=== PATIENT | male | born 1960 | race Caucasian/White ===

== ENCOUNTER 2017-01-06 01:28 | Emergency (ER) | payer MEDICAID ==
[2017-01-06] MEDS ORDERED: diphenhydrAMINE 50 MG/ML SDV IVPUSH ONE (01:51)
[2017-01-06] MEDS ORDERED: methylPREDNISolone Sodium Succinate 125 MG/2 ML SDV IVPUSH ONE (01:51)
--- NOTE | 2017-01-06 01:56 | EDM.PDOC ---
ED HPI GENERAL MEDICAL PROBLEM - General Chief Complaint: Chest Pain Stated Complaint: CHEST PAIN, FACIAL SWELLING Time Seen by Provider: 01/06/17 01:53 Source of Information: Reports: Patient History Limitations: Reports: No Limitations - History of Present Illness INITIAL COMMENTS - FREE TEXT/NARRATIVE: onset hives today at work and coworkers noticed his lips are swollen and he felt some throat discomfort tried benadryl. and tonight while chatting with daughter, developed on off sharp lid chest pains, denies h/o heart problems. been taking augmentin and on 7th day when this started. Left Chest Pain Score (Numeric/FACES): 9 - Related Data Allergies Allergy/AdvReac Type Severity Reaction Status Date / Time No Known Allergies Allergy Verified 07/16/13 19:57 Home Meds: Home Meds Aspirin [Emily Chewable] 81 mg PO DAILY 07/16/13 [History] Amoxicillin/Clavulanate K [Augmentin 875 MG/125 MG] 1 tab PO BID 01/06/17 [ History] Multivitamin [One Daily] 1 each PO DAILY 01/06/17 [History] Past Medical History HEENT History: Reports: Hard of Hearing Gastrointestinal History: Reports: Diverticulosis - Past Surgical History HEENT Surgical History: Reports: Other (See Below) Other HEENT Surgeries/Procedures: ear operations Musculoskeletal Surgical History: Reports: Arthroscopic Knee Social & Family History - Tobacco Use Smoking Status *Q: Current Every Day Smoker Years of Tobacco use: 37 Packs/Tins Daily: 1 Used Tobacco, but Quit: No Second Hand Smoke Exposure: Yes - Alcohol Use Days Per Week of Alcohol Use: 0 - Recreational Drug Use Recreational Drug Use: No Drug Use in Last 12 Months: Yes Recreational Drug Type: Reports: Marijuana/Hashish Recreational Drug Use Frequency: Monthly ED ROS GENERAL - Review of Systems Review Of Systems: ROS reveals no pertinent complaints other than HPI. ED EXAM, GENERAL - Physical Exam Exam: See Below Exam Limited By: No Limitations General Appearance: Alert, WD/WN, Mild Distress, Other (discomfort) Ears: Hearing Grossly Normal Throat/Mouth: Normal Inspection, Normal Oropharynx, Normal Voice, No Airway Compromise Head: Atraumatic Neck: Non-Tender, Full Range of Motion Respiratory/Chest: No Respiratory Distress, No Accessory Muscle Use Cardiovascular: Regular Rate, Rhythm GI/Abdominal: Soft, Non-Tender Neurological: Alert, Oriented, Normal Cognition, Normal Gait, No Motor/Sensory Deficits Psychiatric: Flat Affect Skin Exam: Warm, Dry, Normal Color, Rash, Other (scattered on abd') Lymphatic: No Adenopathy Course - Vital Signs Last Recorded V/S: Last Vital Signs Temp 36.6 C 01/06/17 03:22 Pulse 90 01/06/17 03:22 Resp 16 01/06/17 03:22 BP 114/68 01/06/17 03:22 Pulse Ox 93 L 01/06/17 03:22 - Orders/Labs/Meds Labs: Laboratory Tests 01/06/17 01/06/17 01/06/17 Range/Units 01:45 01:45 01:45 WBC 20.1 H (5.0-10.0) 10^3/uL RBC 4.88 (4.6-6.2) 10^6/uL Hgb 14.5 (14.0-18.0) g/dL Hct 43.1 (40.0-54.0) % MCV 88.3 (80-100) fL MCH 29.7 (27.0-34.0) pg MCHC 33.6 (33.0-35.0) g/dL Plt Count 336 (150-450) 10^3/uL Neut % (Auto) 79.1 H (42.2-75.2) % Lymph % (Auto) 13.9 L (20.5-50.1) % [place] % (Auto) 6.2 (2-8) % Eos % (Auto) 0.8 L (1.0-3.0) % Baso % (Auto) 0.0 (0.0-1.0) % D-Dimer, Quantitative 2930 H (0-400) ng/mL Sodium 137 (135-145) mmol/L Potassium 3.4 L (3.6-5.0) mmol/L Chloride 99 L (101-111) mmol/L Carbon Dioxide 28.0 (21.0-31.0) mmol/L Anion Gap 13.4 BUN 16 (7-18) mg/dL Creatinine 0.7 (0.6-1.3) mg/dL Est Cr Clr Drug Dosing 107.10 mL/min Estimated GFR (MDRD) > 60 BUN/Creatinine Ratio 22.85 Glucose 118 H (74-105) mg/dL Calcium 9.3 (8.4-10.2) mg/dl Total Bilirubin 0.7 (0.2-1.0) mg/dL AST 24 (10-42) IU/L ALT 22 (10-60) IU/L Alkaline Phosphatase 33 L (42-121) IU/L Troponin I 0.02 (0.00-0.02) ng/ml B-Natriuretic Peptide 23 (0-100) pg/ml Total Protein 6.4 L (6.7-8.2) g/dl Albumin 4.0 (3.2-5.5) g/dl Globulin 2.4 Albumin/Globulin Ratio 1.67 Meds: Medications Discontinued Medications Generic Name Dose Route Start Last Admin Trade Name Freq PRN Reason Stop Dose Admin Diphenhydramine HCl 25 mg 01/06/17 01:51 Benadryl IVPUSH 01/06/17 01:52 ONETIME ONE Sodium Chloride 1,000 mls @ 999 mls/hr 01/06/17 02:31 01/06/17 02:37 Normal Saline IV 01/06/17 03:31 999 mls/hr .BOLUS ONE Administration Sodium Chloride 1,000 mls @ 500 mls/hr 01/06/17 03:30 01/06/17 03:25 Normal Saline IV 500 mls/hr ASDIRECTED RUDDY Administration Iopamidol 100 ml 01/06/17 02:25 01/06/17 03:26 Isovue-370 (76%) IVPUSH 01/06/17 02:26 58 ml ONETIME ONE Administration Methylprednisolone Sodium Succinate 125 mg 01/06/17 01:51 01/06/17 01:57 Solu-Medrol IVPUSH 01/06/17 01:52 125 mg ONETIME ONE Administration Morphine Sulfate 2 mg 01/06/17 02:31 01/06/17 02:38 Morphine IVPUSH 01/06/17 02:32 2 mg ONETIME ONE Administration Ondansetron HCl 4 mg 01/06/17 02:31 01/06/17 02:37 Zofran IV 01/06/17 02:32 4 mg ONETIME ONE Administration - Re-Assessments/Exams Free Text/Narrative Re-Assessment/Exam: 01/06/17 03:55 results discussed with pt who is feeling much better presently. Departure - Departure Time of Disposition: 04:30 Disposition: Home, Self-Care 01 Condition: Good Clinical Impression: Medication reaction Qualifiers: Encounter type: initial encounter Qualified Code(s): T88.7XXA - Unspecified adverse effect of drug or medicament, initial encounter Instructions: Nonspecific Chest Pain, [id number] Referrals: Joby Scott MD [Primary Care Provider] - Forms: ED Department Discharge Additional Instructions: 1) AVOID ALL PENICILLIN PRODUCTS 2) continue benadryl 25mg 4 times daily for rash 3) recheck as needed rx given; medrol dospak
[2017-01-06 02:12] LABS: CHLORIDE,CL 99 mmol/L (101-111); SODIUM,NA 137 mmol/L (135-145)
[2017-01-06] MEDS ORDERED: Iopamidol 755 Mg/ML 100 ML Bottle IVPUSH ONE (02:25)
[2017-01-06] MEDS ORDERED: Ondansetron 4 MG/2 ML SDV IV ONE (02:31)
[2017-01-06] MEDS ORDERED: Sodium Chloride 0.9% 1,000 ML IV ONE (02:31)
[2017-01-06] MEDS ORDERED: Morphine 2 MG/ML Syringe IVPUSH ONE (02:31)
[2017-01-06] MEDS ORDERED: Sodium Chloride 0.9% 1,000 ML IV SCH (03:30)
--- NOTE | 2017-01-08 11:49 | EKG ---
01/06/2017 - LAURI BARRY - Twelve-lead EKG shows normal sinus rhythm with heart rate of 89. VT interval of 112. QTc of 434. No significant ST elevation or ST depression noted on this 12- lead EKG. Nonspecific ST-T wave changes noted on lead 2 and 3. [facility] /[id number]
--- NOTE | 2017-01-10 12:11 | EKG ---
01/06/2017 - LAURI BARRY - This 12-lead EKG shows normal sinus rhythm with heart rate of 89, IL interval of 112. No significant ST elevation or ST depression noted on this 12-lead EKG. Nonspecific ST-T wave changes noted on lead V2 and V3. [facility] /[id number]
== END 2017-01-06 04:33 | disposition home or self-care (01) ==
LOC: DL.ED 01:28
DX: L27.1 Localized skin eruption due to drugs and medicaments taken internally (principal); T36.0X5A Adverse effect of penicillins, initial encounter; R07.9 Chest pain, unspecified; Z79.82 Long term (current) use of aspirin; Z79.899 Other long term (current) drug therapy; F17.210 Nicotine dependence, cigarettes, uncomplicated
CPT/HCPCS: 36415; 71260; 80053; 83880; 84484; 85025; 85379; 93005; 96361; 96374; 96375; 99285; J2270; J2405; J2930; J7030; Q9967

== ENCOUNTER 2018-08-12 05:26 | Day surgery (SDC) | payer MEDICAID ==
[2018-08-12] MEDS ORDERED: fentaNYL 100 MCG/2 ML SDV IV ONE ×3 (05:27→06:28)
[2018-08-12] MEDS ORDERED: Midazolam 1 MG/ML 2 ML SDV IV ONE ×7 (05:27→06:41)
[2018-08-12] MEDS ORDERED: Midazolam 1 MG/ML 2 ML SDV ONE (06:15)
[2018-08-12] MEDS ORDERED: fentaNYL 100 MCG/2 ML SDV ONE (06:15)
[2018-08-12] MEDS ORDERED: Sodium Chloride 0.9% 10 ML Syringe FLUSH PRN (07:00)
[2018-08-12] MEDS ORDERED: Dextrose 5%-0.45% NaCl 1,000 ML IV SCH (07:00)
--- NOTE | 2018-08-12 12:06 | OR ---
DATE: 08/12/2018 PROCEDURE PERFORMED: Total colonoscopy. INSTRUMENT USED: [id number] Olympus video colonoscope. PREMEDICATIONS: Fentanyl 100 mcg intravenous, Versed 4 mg intravenous. The procedure was done under pulse oximetry, BP recording, and supervisor braiding. INDICATION: The patient with previous colonic adenoma. Surveillance colonoscopic examination is done for detection of any polypoid lesions and removal, endoscopic hemostasis therapy if needed. DESCRIPTION OF PROCEDURE: Initial rectal exam showed external hemorrhoidal tags. Rigid anoscopy showed moderate-sized internal hemorrhoids of the rectum. The colonoscope was passed with ease. Scattered diverticula were noted in the colon more so in the distal left colon. The scope was passed with ease up to the ileocecal area. Photographs were taken of the normal-appearing cecum, identified by double-bulged ileocecal folds. No bleeding was noted from any of the visualized areas at the commencement of the examination. There was significant amount of fecal material that had to be aspirated. Bowel preparation Arverne scale 2 in all the regions. No stricture. No vascular ectasia. No large isolated ulcerations seen. No evidence of diffuse inflammatory bowel disease in the form of friability, contact bleeding, or ulcerations. No polyp or tumor mass identified. Probing the proximal sides of folds and flexures using adequate distention and clearing up the stool material, withdrawal of the scope was made, cecum to rectum, time over 6 minutes. No bleeding was noted from any of the visualized areas at the completion of examination. IMPRESSION: 1. External and internal hemorrhoids. 2. Diverticulosis. The patient tolerated the procedure well. [facility] /[id number]
== END 2018-08-12 08:52 | disposition home or self-care (01) ==
LOC: DL.ENDO 05:26
PROVIDERS: ATTEND Internal Medicine Gastroenterology
DX: Z12.11 Encounter for screening for malignant neoplasm of colon (principal); Z86.010 Personal history of colon polyps; K57.30 Diverticulosis of large intestine without perforation or abscess without bleeding; K64.4 Residual hemorrhoidal skin tags; K64.8 Other hemorrhoids; F17.210 Nicotine dependence, cigarettes, uncomplicated; F43.9 Reaction to severe stress, unspecified; F41.9 Anxiety disorder, unspecified; Z79.82 Long term (current) use of aspirin; Z98.890 Other specified postprocedural states
CPT/HCPCS: 45378; G0121; J2250; J3010; J7042

== ENCOUNTER 2020-01-16 14:30 | Emergency (ER) | payer MEDICAID ==
--- NOTE | 2020-01-16 15:47 | EDM.PDOC ---
ED HPI GENERAL MEDICAL PROBLEM - General Chief Complaint: Skin Complaint Stated Complaint: LEFT FOOT CANT WALK BUMPS SWOLLEN Time Seen by Provider: 01/16/20 14:55 Source of Information: Reports: Patient, RN, RN Notes Reviewed History Limitations: Reports: No Limitations - History of Present Illness INITIAL COMMENTS - FREE TEXT/NARRATIVE: Patient presents to the ED via personal vehicle with complaints of rash to bilateral feet. The patient states the rash began to his left anterior toes about two weeks ago; over the course of five days the rash appeared on the anterior aspect of his right toes, as well. He denies pain to the rash but attests to significant pruritus and swelling. He states the open lesions have drained a clear, yellow fluid before crusting over. He has been using daily Epsom salt soaks and "A&D" cream to the affected area, but he has not noted an improvement in his rash. He denies loss of motor or sensory function to his feet. He denies fever, shaking chills, or recent illness. He denies a history of Herpes virus infection. Bilateral Anterior Foot Pain Score (Numeric/FACES): 4 - Related Data Allergies Allergy/AdvReac Type Severity Reaction Status Date / Time No Known Allergies Allergy Verified 08/12/18 05:52 Home Meds: Home Meds Aspirin 81 mg PO DAILY 01/26/18 [History] Multivitamin [Multivitamins] 1 tab PO DAILY 01/26/18 [History] diphenhydrAMINE HCL [Benadryl Allergy] 25 mg PO ASDIRECTED PRN 01/26/18 [History] Docusate Sodium [Colace] 100 mg PO DAILY 08/09/18 [History] Past Medical History HEENT History: Reports: Hard of Hearing, Other (See Below) Other HEENT History: TYMPANIC MEMBRANE PERFORATION, RIGHT Cardiovascular History: Reports: None Respiratory History: Reports: None Gastrointestinal History: Reports: Diverticulosis Genitourinary History: Reports: Other (See Below) Other Genitourinary History: HYDROCELE Musculoskeletal History: Reports: Back Pain, Chronic Neurological History: Reports: None Psychiatric History: Reports: Addiction Endocrine/Metabolic History: Reports: None Hematologic History: Reports: None Immunologic History: Reports: None Oncologic (Cancer) History: Reports: None Dermatologic History: Reports: None - Infectious Disease History Infectious Disease History: Reports: None - Past Surgical History HEENT Surgical History: Reports: Adenoidectomy, Myringotomy w Tube(s), Tonsillectomy, Other (See Below) Other HEENT Surgeries/Procedures: ear operations Cardiovascular Surgical History: Reports: None GI Surgical History: Reports: Colonoscopy Male Surgical History: Reports: Varicocele Resection, Vasectomy Musculoskeletal Surgical History: Reports: Arthroscopic Knee Social & Family History - Family History Family Medical History: No Pertinent Family History - Tobacco Use Tobacco Use Status *Q: Current Every Day Tobacco User Years of Tobacco use: 20 Packs/Tins Daily: 0.5 - Caffeine Use Caffeine Use: Reports: Soda Other Caffeine Use: DRINKS SODA POP - Recreational Drug Use Recreational Drug Use: No - Living Situation & Occupation Living situation: Reports: with Family ED ROS GENERAL - Review of Systems Review Of Systems: Comprehensive ROS is negative, except as noted in HPI. ED EXAM, SKIN/RASH Exam: See Below Exam Limited By: No Limitations General Appearance: Alert, WD/WN, No Apparent Distress Throat/Mouth: Normal Inspection, Normal Oropharynx, Normal Voice, No Airway Compromise Head: Atraumatic, Normocephalic Neck: Normal Inspection, Supple, Non-Tender, Full Range of Motion Peripheral Pulses: 2+: Radial (L), Radial (R) Neurological: Oriented, CN II-XII Intact, Normal Cognition, Normal Gait, No Motor/Sensory Deficits Skin: Warm, Dry, Rash Location, Skin: Lower Extremity, Right (Anterior second-fourth toes), Lower Extremity, Left (Anterior second-fifth toes) Characteristics: Fine, Vesicular, Erythematous Associated features: Warmth, Swelling, Inflammation, Crusting, Weeping Lymphatic: No Adenopathy Course - Vital Signs Last Recorded V/S: Last Vital Signs Temp 99.2 F 01/16/20 14:37 Pulse 84 01/16/20 14:37 Resp 18 01/16/20 14:37 BP 108/80 01/16/20 14:37 Pulse Ox 99 01/16/20 14:37 - Re-Assessments/Exams Free Text/Narrative Re-Assessment/Exam: 01/16/20 Will treat rash of unknown etiology with Bactroban 2% BID ointment x7 days, Valtrex 1gm TID x7 days, and Fluconazole 200mg QD x7 days. Patient instructed to follow up with primary care provider in one week for reassessment of rash. Patient instructed to keep feet clean and dry. Departure - Departure Time of Disposition: 15:46 Disposition: Home, Self-Care 01 Condition: Good Clinical Impression: Skin infection, Pruritic rash - Discharge Information *PRESCRIPTION DRUG MONITORING PROGRAM REVIEWED*: Not Applicable *COPY OF PRESCRIPTION DRUG MONITORING REPORT IN PATIENT DANIELA: Not Applicable Instructions: Rash, Adult, [id number] Forms: ED Department Discharge Additional Instructions: Rx: Bactroban Rx: Valtrex Rx: Fluconazole Take all medications, as discussed, until gone. Keep feet clean and dry. Follow up with primary care provider in one week for assessment of rash. Sepsis Event Note (ED) - Evaluation Sepsis Screening Result: No Definite Risk - Focused Exam Vital Signs: Vital Signs Temp Pulse Resp BP Pulse Ox 01/16/20 14:37 99.2 F 84 18 108/80 99
== END 2020-01-16 15:50 | disposition home or self-care (01) ==
LOC: DL.ED 14:30
DX: R21 Rash and other nonspecific skin eruption (principal); L08.9 Local infection of the skin and subcutaneous tissue, unspecified; F17.210 Nicotine dependence, cigarettes, uncomplicated; Z79.82 Long term (current) use of aspirin
CPT/HCPCS: 99282; 99283

== ENCOUNTER 2020-03-11 21:57 | Emergency (ER) | payer MEDICAID ==
[2020-03-11 23:08] LABS: ANION GAP 16.8 mEq/L (7-13); CHLORIDE,CL 102 mmol/L (98-107); SODIUM,NA 141 mmol/L (136-145)
--- NOTE | 2020-03-11 23:41 | EDM.PDOC ---
ED HPI GENERAL MEDICAL PROBLEM - General Chief Complaint: Skin Complaint Stated Complaint: FEET INFECTED Time Seen by Provider: 03/11/20 22:15 Source of Information: Reports: Patient, RN, RN Notes Reviewed History Limitations: Reports: No Limitations - History of Present Illness INITIAL COMMENTS - FREE TEXT/NARRATIVE: Patient is a 59-year-old male who presents to the ER tonight with complaint of rash, swelling, drainage, itching to the tops of the feet bilaterally. Patient states he has been dealing with this since the beginning of January or even before that. Has been on 2 rounds of antibiotics, 2 rounds of oral steroids, antifungal oral medications, as well as antiviral oral medications. He does have an appointment set up with dermatology for April 17, is unable to be seen before that he states. Patient states this began with the left pinky toe becoming purple/black and progressed from there. He states his feet are now very painful and unable to walk much on them. Patient admits to chills from time to time denies any other complaints. Onset: Gradual Feet Pain Score (Numeric/FACES): 7 - Related Data Allergies Allergy/AdvReac Type Severity Reaction Status Date / Time No Known Allergies Allergy Verified 03/11/20 22:09 Home Meds: Home Meds Aspirin 81 mg PO DAILY 01/26/18 [History] Multivitamin [Multivitamins] 1 tab PO DAILY 01/26/18 [History] diphenhydrAMINE HCL [Benadryl Allergy] 25 mg PO ASDIRECTED PRN 01/26/18 [Hi story] Docusate Sodium [Colace] 100 mg PO DAILY 08/09/18 [History] Past Medical History HEENT History: Reports: Hard of Hearing, Other (See Below) Other HEENT History: TYMPANIC MEMBRANE PERFORATION, RIGHT Cardiovascular History: Reports: None Respiratory History: Reports: None Gastrointestinal History: Reports: Diverticulosis Genitourinary History: Reports: Other (See Below) Other Genitourinary History: HYDROCELE Musculoskeletal History: Reports: Back Pain, Chronic Neurological History: Reports: None Psychiatric History: Reports: Addiction Endocrine/Metabolic History: Reports: None Hematologic History: Reports: None Immunologic History: Reports: None Oncologic (Cancer) History: Reports: None Dermatologic History: Reports: None - Infectious Disease History Infectious Disease History: Reports: None - Past Surgical History HEENT Surgical History: Reports: Adenoidectomy, Myringotomy w Tube(s), Tonsillectomy, Other (See Below) Other HEENT Surgeries/Procedures: ear operations Cardiovascular Surgical History: Reports: None GI Surgical History: Reports: Colonoscopy Male Surgical History: Reports: Varicocele Resection, Vasectomy Musculoskeletal Surgical History: Reports: Arthroscopic Knee Social & Family History - Family History Family Medical History: No Pertinent Family History - Tobacco Use Tobacco Use Status *Q: Never Tobacco User Second Hand Smoke Exposure: No - Caffeine Use Caffeine Use: Reports: Soda Other Caffeine Use: DRINKS SODA POP - Recreational Drug Use Recreational Drug Use: Yes Recreational Drug Type: Reports: Marijuana/Hashish - Living Situation & Occupation Living situation: Reports: with Family Review of Systems - Review of Systems Review Of Systems: Comprehensive ROS is negative, except as noted in HPI. ED EXAM, GENERAL - Physical Exam Exam: See Below Exam Limited By: No Limitations General Appearance: Alert, WD/WN, No Apparent Distress Eye Exam: Bilateral Eye: EOMI, Normal Inspection Ears: Normal External Exam, Hearing Grossly Normal Nose: Normal Inspection Throat/Mouth: Normal Inspection, Normal Voice, No Airway Compromise Head: Atraumatic, Normocephalic Neck: Normal Inspection, Supple, Non-Tender, Full Range of Motion Respiratory/Chest: No Respiratory Distress, Lungs Clear, No Accessory Muscle Use, Chest Non-Tender, Decreased Breath Sounds Cardiovascular: Normal Peripheral Pulses, Regular Rate, Rhythm, No Edema, No Gallop, No JVD, No Murmur, No Rub Peripheral Pulses: 2+: Radial (L), Radial (R), Dorsalis Pedis (L), Dorsalis Pedis (R) GI/Abdominal: Normal Bowel Sounds, Soft, Non-Tender (Male) Exam: Deferred Rectal (Males) Exam: Deferred Back Exam: Normal Inspection, Full Range of Motion, NT Extremities: Normal Inspection, Normal Range of Motion, Non-Tender, Normal Capillary Refill, No Pedal Edema Neurological: Alert, Oriented, CN II-XII Intact, Normal Cognition, Normal Gait, Normal Reflexes, No Motor/Sensory Deficits Psychiatric: Normal Affect, Normal Mood Skin Exam: Warm, Dry, Erythema (dorsal aspect of feet and toes bilaterally, vesicular lesions as well as bullous lesions), Zoster-Like Rash Lymphatic: No Adenopathy Course - Vital Signs Last Recorded V/S: Last Vital Signs Temp 99.7 F 03/11/20 22:09 Pulse 121 H 03/11/20 22:09 Resp 20 03/11/20 22:09 BP 121/105 H 03/11/20 22:09 Pulse Ox 98 03/11/20 22:09 - Orders/Labs/Meds Orders: Active Orders 24 hr Category Date Time Status CULTURE BLOOD [BC] Stat Lab 03/11/20 22:42 Received CULTURE BLOOD [BC] Stat Lab 03/11/20 23:12 Received CULTURE WOUND [RM] Urgent Lab 03/11/20 23:00 Received Blood Culture x2 Reflex Set [OM.PC] Stat Oth 03/11/20 22:34 Ordered Labs: Laboratory Tests 03/11/20 03/11/20 03/11/20 Range/Units 22:42 22:42 22:42 WBC 14.2 H (5.0-10.0) 10^3/uL RBC 5.31 (4.6-6.2) 10^6/uL Hgb 15.9 D (14.0-18.0) g/dL Hct 46.2 (40.0-54.0) % MCV 87.0 (80-100) fL MCH 29.9 (27.0-34.0) pg MCHC 34.4 (33.0-35.0) g/dL Plt Count 413 (150-450) 10^3/uL Neut % (Auto) 71.4 (42.2-75.2) % Lymph % (Auto) 17.9 L (20.5-50.1) % [place] % (Auto) 9.6 H (2-8) % Eos % (Auto) 0.9 L (1.0-3.0) % Baso % (Auto) 0.2 (0.0-1.0) % ESR (0-15) mm/hr Sodium 141 (136-145) mmol/L Potassium 3.8 (3.5-5.1) mmol/L Chloride 102 (98-107) mmol/L Carbon Dioxide 26 (21-32) mmol/L Anion Gap 16.8 H (7-13) mEq/L BUN 17 (7-18) mg/dL Creatinine 1.03 (0.70-1.30) mg/dL Est Cr Clr Drug Dosing 73.09 mL/min Estimated GFR (MDRD) > 60 BUN/Creatinine Ratio 16.5 (No establ ref range) Glucose 95 (74-99) mg/dL Lactic Acid 1.2 (0.4-2.0) mmol/L Calcium 9.3 (8.5-10.1) mg/dL Total Bilirubin 0.5 (0.2-1.0) mg/dL AST 16 (15-37) U/L ALT 23 (16-63) U/L Alkaline Phosphatase 46 (46-116) U/L C-Reactive Protein (0.0-0.9) mg/dL Total Protein 7.5 (6.4-8.2) g/dL Albumin 4.1 (3.4-5.0) g/dL Globulin 3.4 Albumin/Globulin Ratio 1.2 SARS CoV-2 RNA Rapid BENOIT (NEGATIVE) 03/11/20 03/11/20 03/11/20 Range/Units 22:42 22:42 22:57 WBC (5.0-10.0) 10^3/uL RBC (4.6-6.2) 10^6/uL Hgb (14.0-18.0) g/dL Hct (40.0-54.0) % MCV (80-100) fL MCH (27.0-34.0) pg MCHC (33.0-35.0) g/dL Plt Count (150-450) 10^3/uL Neut % (Auto) (42.2-75.2) % Lymph % (Auto) (20.5-50.1) % Loving % (Auto) (2-8) % Eos % (Auto) (1.0-3.0) % Baso % (Auto) (0.0-1.0) % ESR 7 (0-15) mm/hr Sodium (136-145) mmol/L Potassium (3.5-5.1) mmol/L Chloride (98-107) mmol/L Carbon Dioxide (21-32) mmol/L Anion Gap (7-13) mEq/L BUN (7-18) mg/dL Creatinine (0.70-1.30) mg/dL Est Cr Clr Drug Dosing mL/min Estimated GFR (MDRD) BUN/Creatinine Ratio (No establ ref range) Glucose (74-99) mg/dL Lactic Acid (0.4-2.0) mmol/L Calcium (8.5-10.1) mg/dL Total Bilirubin (0.2-1.0) mg/dL AST (15-37) U/L ALT (16-63) U/L Alkaline Phosphatase (46-116) U/L C-Reactive Protein 1.9 H (0.0-0.9) mg/dL Total Protein (6.4-8.2) g/dL Albumin (3.4-5.0) g/dL Globulin Albumin/Globulin Ratio SARS CoV-2 RNA Rapid BENOIT Negative (NEGATIVE) Meds: Medications Discontinued Medications Generic Name Dose Route Start Last Admin Trade Name Freq PRN Reason Stop Dose Admin Amoxicillin/Clavulanate Potassium 1 tab 03/12/20 00:38 Augmentin 875 Mg/125 Mg PO 03/12/20 00:39 ONETIME ONE - Re-Assessments/Exams Free Text/Narrative Re-Assessment/Exam: 03/12/20 00:53 Much research and investigation was done to try to narrow down a diagnosis for the patient. Discussed all differential diagnoses with the patient including but not limited to vasculitis, tinea pedis, Covid toes. This appears to be more of an inflammatory process rather than a bacterial infection. Discussed labs and differentials with the patient. We will try high-dose topical steroid cream as well as antibiotic to cover MSSA. Patient is agreeable to this treatment plan, and will follow up if there is no improvement. Patient states he will also follow-up with dermatology at the appointment he has scheduled. Departure - Departure Time of Disposition: 00:42 Disposition: Home, Self-Care 01 Condition: Fair Clinical Impression: Pruritic rash - Discharge Information *PRESCRIPTION DRUG MONITORING PROGRAM REVIEWED*: No *COPY OF PRESCRIPTION DRUG MONITORING REPORT IN PATIENT DANIELA: No Instructions: Rash, Adult, [id number], Probiotics Forms: ED Department Discharge Additional Instructions: RX: Triamcinolone, Augmentin, Probiotic Take a probiotic with the Augmentin to prevent diarrhea and upset stomach Keep feet uncovered and open to air as much as possible Use Triamcinolone cream 3-4 times daily Follow up with Dermatology with regularly scheduled appointment Sepsis Event Note (ED) - Evaluation Sepsis Screening Result: No Definite Risk - Focused Exam Vital Signs: Vital Signs Temp Pulse Resp BP Pulse Ox 03/11/20 22:09 99.7 F 121 H 20 121/105 H 98 - My Orders Last 24 Hours: My Active Orders 03/11/20 22:34 Blood Culture x2 Reflex Set [OM.PC] Stat 03/11/20 22:42 CULTURE BLOOD [BC] Stat 03/11/20 23:00 CULTURE WOUND [RM] Urgent 03/11/20 23:12 CULTURE BLOOD [BC] Stat - Assessment/Plan Last 24 Hours: My Active Orders 03/11/20 22:34 Blood Culture x2 Reflex Set [OM.PC] Stat 03/11/20 22:42 CULTURE BLOOD [BC] Stat 03/11/20 23:00 CULTURE WOUND [RM] Urgent 03/11/20 23:12 CULTURE BLOOD [BC] Stat
[2020-03-12] MEDS ORDERED: Amoxicillin/Clavulanate K 875-125 MG Tab PO ONE (00:38)
== END 2020-03-12 00:59 | disposition home or self-care (01) ==
LOC: DL.ED 21:57
DX: L29.9 Pruritus, unspecified (principal); Z20.822 Contact with and (suspected) exposure to COVID-19
CPT/HCPCS: 36415; 80053; 83605; 85025; 85651; 86140; 87040; 87070; 87077; 87186; 99283; A9270-GY; U0002

== ENCOUNTER 2020-03-12 02:56 | Emergency (ER) | payer MEDICAID ==
[2020-03-12] MEDS ORDERED: Sodium Chloride 0.9% 1,000 ML IV ONE (03:15)
[2020-03-12] MEDS ORDERED: methylPREDNISolone Sodium Succinate 125 MG/2 ML SDV ONE (03:16)
[2020-03-12] MEDS ORDERED: Famotidine 20 MG/2 ML SDV ONE (03:16)
[2020-03-12] MEDS ORDERED: Ondansetron 4 MG/2 ML SDV ONE (03:18)
[2020-03-12] MEDS ORDERED: diphenhydrAMINE 50 MG/ML SDV IVPUSH ONE (03:22)
[2020-03-12] MEDS ORDERED: Famotidine 20 MG/2 ML SDV IVPUSH ONE (03:22)
[2020-03-12] MEDS ORDERED: methylPREDNISolone Sodium Succinate 125 MG/2 ML SDV IVPUSH ONE (03:22)
[2020-03-12] MEDS ORDERED: Ondansetron 4 MG/2 ML SDV IVPUSH ONE (03:22)
--- NOTE | 2020-03-12 03:36 | EDM.PDOC ---
ED HPI GENERAL MEDICAL PROBLEM - General Chief Complaint: Allergic Reaction Stated Complaint: ALLERGIC REACTION Time Seen by Provider: 03/12/20 03:10 Source of Information: Reports: Patient, RN, RN Notes Reviewed History Limitations: Reports: No Limitations - History of Present Illness INITIAL COMMENTS - FREE TEXT/NARRATIVE: Pt is a 59 year old male who presents to ER with c/o swelling of the tongue. Patient was seen in the ER earlier in the evening for a rash to the feet bilaterally. Patient was started on Augmentin. Patient had stated no allergies to medications at that time. Chart did not show any allergies at that time. Further investigation into the patient past medical chart showed an encounter for facial swelling after being started on Augmentin. Patient does not remember that encounter. Patient states at home he was having hot flashes and the urge to need to defecate. States he never felt short of breath, but states he felt his tongue swelling, and the feeling that "something swallowed was stuck in the throat". Onset: Today, Sudden - Related Data Allergies Allergy/AdvReac Type Severity Reaction Status Date / Time amoxicillin [From Augmentin] Allergy Facial Verified 03/12/20 02:57 Swelling clavulanic acid Allergy Facial Verified 03/12/20 02:57 [From Augmentin] Swelling Home Meds: Home Meds Aspirin 81 mg PO DAILY 01/26/18 [History] Multivitamin [Multivitamins] 1 tab PO DAILY 01/26/18 [History] diphenhydrAMINE HCL [Benadryl Allergy] 25 mg PO ASDIRECTED PRN 01/26/18 [History] Docusate Sodium [Colace] 100 mg PO DAILY 08/09/18 [History] Past Medical History HEENT History: Reports: Hard of Hearing, Other (See Below) Other HEENT History: TYMPANIC MEMBRANE PERFORATION, RIGHT Cardiovascular History: Reports: None Respiratory History: Reports: None Gastrointestinal History: Reports: Diverticulosis Genitourinary History: Reports: Other (See Below) Other Genitourinary History: HYDROCELE Musculoskeletal History: Reports: Back Pain, Chronic Neurological History: Reports: None Psychiatric History: Reports: Addiction Endocrine/Metabolic History: Reports: None Hematologic History: Reports: None Immunologic History: Reports: None Oncologic (Cancer) History: Reports: None Dermatologic History: Reports: None - Infectious Disease History Infectious Disease History: Reports: None - Past Surgical History HEENT Surgical History: Reports: Adenoidectomy, Myringotomy w Tube(s), Tonsillectomy, Other (See Below) Other HEENT Surgeries/Procedures: ear operations Cardiovascular Surgical History: Reports: None GI Surgical History: Reports: Colonoscopy Male Surgical History: Reports: Varicocele Resection, Vasectomy Musculoskeletal Surgical History: Reports: Arthroscopic Knee Social & Family History - Family History Family Medical History: No Pertinent Family History - Tobacco Use Tobacco Use Status *Q: Never Tobacco User - Caffeine Use Caffeine Use: Reports: Soda Other Caffeine Use: DRINKS SODA POP - Living Situation & Occupation Living situation: Reports: with Family ED ROS ALLERGIC REACTION - Review of Systems Review Of Systems: Comprehensive ROS is negative, except as noted in HPI. ED EXAM GENERAL NO PERIP PULSE - Physical Exam Exam: See Below Exam Limited By: No Limitations General Appearance: Alert, WD/WN, Anxious, Moderate Distress Eye Exam: Bilateral Eye: EOMI, Normal Inspection Ears: Normal External Exam, Hearing Grossly Normal Nose: Normal Inspection Throat/Mouth: Normal Lips, Normal Teeth, Normal Gums, Normal Oropharynx, Normal Voice, Other (tongue swelling) Head: Atraumatic, Normocephalic Neck: Normal Inspection, Supple, Non-Tender, Full Range of Motion Respiratory/Chest: No Respiratory Distress, Lungs Clear, Normal Breath Sounds, No Accessory Muscle Use, Chest Non-Tender Cardiovascular: Normal Peripheral Pulses, Regular Rate, Rhythm, No Edema, No Gallop, No JVD, No Murmur, No Rub GI/Abdominal: Normal Bowel Sounds, Soft, Non-Tender, No Organomegaly, No Distention, No Abnormal Bruit, No Mass (Male) Exam: Deferred Rectal (Males) Exam: Deferred Back Exam: Normal Inspection, Full Range of Motion, NT Extremities: Normal Inspection, Normal Range of Motion, Non-Tender, Normal Capillary Refill, No Pedal Edema Neurological: Alert, Oriented, CN II-XII Intact, Normal Cognition, Normal Gait, Normal Reflexes, No Motor/Sensory Deficits Psychiatric: Anxious Skin Exam: Warm, Dry, Other (feet wrapped. Vesicular/bullous rash to the dorsal aspect of both feet, serous/sanguinous drainage) Lymphatic: No Adenopathy Course - Vital Signs Last Recorded V/S: Last Vital Signs Temp 97.3 F 03/12/20 03:18 Pulse 96 03/12/20 03:18 Resp 24 H 03/12/20 03:18 BP 103/77 03/12/20 03:18 Pulse Ox 100 03/12/20 03:18 - Orders/Labs/Meds Meds: Medications Discontinued Medications Generic Name Dose Route Start Last Admin Trade Name Harshad PRN Reason Stop Dose Admin Diphenhydramine HCl 50 mg 03/12/20 03:22 03/12/20 03:17 Benadryl IVPUSH 03/12/20 03:23 50 mg ONETIME ONE Administration Famotidine Confirm 03/12/20 03:16 03/12/20 03:26 Pepcid Administered 03/12/20 03:17 Not Given Dose 20 mg .ROUTE .STK-MED ONE Famotidine 20 mg 03/12/20 03:22 03/12/20 03:18 Pepcid IVPUSH 03/12/20 03:23 20 mg ONETIME ONE Administration Sodium Chloride 1,000 mls @ 999 mls/hr 03/12/20 03:15 03/12/20 03:15 Normal Saline IV 03/12/20 04:15 999 mls/hr .BOLUS ONE Administration Lactated Ringer's 1,000 mls @ 999 mls/hr 03/12/20 04:04 03/12/20 04:06 Ringers, Lactated IV 03/12/20 05:04 999 mls/hr .BOLUS ONE Administration Methylprednisolone Sodium Succinate Confirm 03/12/20 03:16 03/12/20 03:26 Solu-Medrol Administered 03/12/20 03:17 Not Given Dose 125 mg .ROUTE .STK-MED ONE Methylprednisolone Sodium Succinate 125 mg 03/12/20 03:22 03/12/20 03:19 Solu-Medrol IVPUSH 03/12/20 03:23 125 mg ONETIME ONE Administration Ondansetron HCl Confirm 03/12/20 03:18 03/12/20 03:26 Zofran Administered 03/12/20 03:19 Not Given Dose 4 mg .ROUTE .STK-MED ONE Ondansetron HCl 4 mg 03/12/20 03:22 03/12/20 03:20 Zofran IVPUSH 03/12/20 03:23 4 mg ONETIME ONE Administration - Re-Assessments/Exams Free Text/Narrative Re-Assessment/Exam: 03/12/20 03:36 Patient states he is feeling improvement after medications for allergic reaction given. 03/12/20 04:24 Labs were not repeated, as they had just been drawn a few hours before. 03/12/20 05:32 Patient feeling better. Will be discharged home. Departure - Departure Time of Disposition: 05:33 Disposition: Home, Self-Care 01 Condition: Fair Clinical Impression: Tongue swelling Allergic drug reaction Qualifiers: Encounter type: initial encounter Qualified Code(s): T78.40XA - Allergy, unspecified, initial encounter - Discharge Information *PRESCRIPTION DRUG MONITORING PROGRAM REVIEWED*: No *COPY OF PRESCRIPTION DRUG MONITORING REPORT IN PATIENT DANIELA: No Instructions: Anaphylactic Reaction, Adult, Allergies, Adult, [id number] Forms: ED Department Discharge Additional Instructions: STOP TAKING AUGMENTIN, TEAR UP THE PRESCRIPTION Follow up with Dr. Scott in the clinic regarding Sleep Apnea, and if there is no improvement with your feet with cream Continue taking Benadryl as directed Return to the ER with any worsening of symptoms Sepsis Event Note (ED) - Evaluation Sepsis Screening Result: No Definite Risk - Focused Exam Vital Signs: Vital Signs Temp Pulse Resp BP Pulse Ox 03/12/20 03:18 97.3 F 96 24 H 103/77 100
[2020-03-12] MEDS ORDERED: Lactated Ringers 1,000 ML IV ONE (04:04)
[2020-03-12] MEDS ORDERED: diphenhydrAMINE 50 MG/ML SDV ONE (05:45)
== END 2020-03-12 05:41 | disposition home or self-care (01) ==
LOC: DL.ED 02:56
DX: K14.8 Other diseases of tongue (principal); T36.0X5A Adverse effect of penicillins, initial encounter; T36.1X5A Adverse effect of cephalosporins and other beta-lactam antibiotics, initial encounter; Z88.0 Allergy status to penicillin; Z88.1 Allergy status to other antibiotic agents
CPT/HCPCS: 96374; 96375; 99283-25; 99284; J1200; J2405; J2930; J3490; J7030; J7120

== ENCOUNTER 2021-07-04 12:09 | Emergency (ER) | payer BC, MEDICAID ==
[2021-07-04] MEDS ORDERED: Ondansetron 4 MG/2 ML SDV IVPUSH ONE (12:50)
[2021-07-04] MEDS ORDERED: Sodium Chloride 0.9% 1,000 ML IV ONE ×2 (12:51→13:52)
[2021-07-04 13:20] LABS: ANION GAP 13.9 mEq/L (7-13); CHLORIDE,CL 101 mmol/L (98-107); SODIUM,NA 137 mmol/L (136-145)
[2021-07-04 13:47] LABS: AMPHETAMINES,URINE NEGATIVE (NEGATIVE); BARBITURATES,URINE NEGATIVE (NEGATIVE); BENZODIAZEPINE,URINE NEGATIVE (NEGATIVE); MDMA (ECSTASY), URINE NEGATIVE (NEGATIVE); METHADONE,URINE NEGATIVE (NEGATIVE); METHAMPHETAMINES,URINE NEGATIVE (NEGATIVE); OPIATES,URINE NEGATIVE (NEGATIVE); OXYCODONE,URINE NEGATIVE (NEGATIVE); PHENCYCLIDINE,URINE NEGATIVE (NEGATIVE); TCA,URINE NEGATIVE (NEGATIVE)
[2021-07-04 14:43] LABS: CORONAVIRUS COVID-19 NAA NEGATIVE (NEGATIVE)
[2021-07-04] MEDS ORDERED: Nitroglycerin/D5W 25 MG/250 ML BOTTLE IV SCH (16:15)
== END 2021-07-04 15:04 | disposition home or self-care (01) ==
LOC: DL.ED 12:09
DX: R11.2 Nausea with vomiting, unspecified (principal); E86.0 Dehydration; Z88.0 Allergy status to penicillin; Z79.82 Long term (current) use of aspirin; Z72.0 Tobacco use; Z20.822 Contact with and (suspected) exposure to COVID-19
CPT/HCPCS: 0240U; 36415; 80053; 80305-QW; 80307; 81001; 83605; 83735; 84443; 84484; 85025; 85379; 86140; 93005; 96374; 99284-25; J2405; J7030

== ENCOUNTER 2024-02-11 06:04 | Day surgery (SDC) | payer BC, MEDICAID ==
[2024-02-11] MEDS ORDERED: Midazolam 1 MG/ML 2 ML SDV ONE (06:12)
[2024-02-11] MEDS ORDERED: fentaNYL 100 MCG/2 ML SDV ONE (06:12)
[2024-02-11] MEDS: Dextrose 5%-0.45% NaCl 1,000 ML IV SCH (06:25)
[2024-02-11] MEDS: fentaNYL 100 MCG/2 ML SDV IV ONE ×2 (07:03)
[2024-02-11] MEDS: Midazolam 1 MG/ML 2 ML SDV IV ONE ×7 (07:04→07:23)
== END 2024-02-11 09:11 | disposition home or self-care (01) ==
LOC: DL.ENDO 06:04
PROVIDERS: ATTEND Internal Medicine Gastroenterology
DX: Z12.11 Encounter for screening for malignant neoplasm of colon (principal); R19.5 Other fecal abnormalities; K57.30 Diverticulosis of large intestine without perforation or abscess without bleeding; K64.4 Residual hemorrhoidal skin tags; K64.8 Other hemorrhoids
CPT/HCPCS: J2250; J3010; J7799